=== PATIENT | male | born 1980 | race Caucasian/White ===

== ENCOUNTER 2022-08-16 07:50 | Day surgery (SDC) | payer OTHER ==
--- NOTE | 2022-08-15 13:27 | HP ---
DATE OF SURGERY: 08/16/2022 HISTORY OF PRESENT ILLNESS: The patient is a 42-year-old male presents with complaints of unintentional weight loss over the past two years. He has had EGD and colonoscopy in May. He had some patchy inflammation. He complains of chronic vomiting. He had a HIDA, ultrasound and a CT scan ordered. Ultrasound showed enlarged gallbladder. His HIDA showed a nonfunctioning gallbladder at 0. The patient incidentally was here earlier this year in the emergency room for new onset seizure, seen by a neurologist. He was supplemented with potassium and magnesium. The patient also incidentally sees hematology for hemochromatosis. He would like to proceed with cholecystectomy at this time. PAST MEDICAL HISTORY: Heart murmur. Hypertension. Heartburn. Hemorrhoids. Gastroesophageal reflux disease. Seizures. Anxiety. He has been on some anxiety medicine. Hiatal hernia. Trauma to his face. Hemochromatosis. Hyperlipidemia. PAST SURGICAL HISTORY: T&A. Ventral hernia repair. Left bunionectomy and hammertoe. ALLERGIES: NKDA. MEDICATIONS: Pantoprazole, potassium, magnesium, omeprazole, lisinopril, trazodone, Lipitor, Rashmi. FAMILY HISTORY: None reported. SOCIAL HISTORY: None reported. REVIEW OF SYSTEMS: CONSTITUTIONAL: Denies fever or chills. CHEST: Denies shortness of breath. CVS: Denies chest pain. ABDOMEN: Denies abdominal pain. PHYSICAL EXAMINATION: GENERAL: No acute distress. CHEST: Nonlabored. No shortness of breath. CVS: Regular rate and rhythm. ABDOMEN: Soft. IMPRESSION: Biliary dyskinesia, polyp. PLAN: Laparoscopic cholecystectomy with Dr. Alex Matute. As dictated by Keara Holcomb NP.
[~2022-08-16 07:50] MED LIST: Lactated Ringers 1,000 ML IV ONE; Sensorcaine 0.25% 10 ML ONE
[2022-08-16] MEDS ORDERED: Versed 2 MG/2 ML Injection IV PRN (08:24)
[2022-08-16] MEDS ORDERED: Transderm Scop 1.5MG Patch TOP PRN (08:25)
[2022-08-16] MEDS ORDERED: Reglan 10 MG/2 ML IV ONE (08:25)
[2022-08-16] MEDS ORDERED: Lactated Ringers 1,000 ML IV SCH (08:30)
[2022-08-16] MEDS ORDERED: Pepcid 20 MG VIAL IV SCH (08:30)
[2022-08-16] MEDS ORDERED: Lactated Ringers 1,000 ML IV ONE (08:35)
[2022-08-16] MEDS ORDERED: Transderm Scop 1.5MG Patch ONE (09:38)
[2022-08-16] MEDS ORDERED: Versed 2 MG/2 ML Injection ONE (09:38)
[2022-08-16] MEDS ORDERED: Pepcid 20 MG VIAL IV ONE ×2 (09:38→09:41)
[2022-08-16] MEDS ORDERED: MEFOXIN 2 GM PREMIX** 2 GM/50 ML ML IV ONE (09:38)
[2022-08-16] MEDS ORDERED: Reglan 10 MG/2 ML ONE (09:39)
[2022-08-16] MEDS ORDERED: MEFOXIN 2 GM PREMIX** 2 GM/50 ML ML IV SCH (10:00)
[2022-08-16] MEDS ORDERED: DIPRIVAN 200 MG/20 ML IV ONE (10:48)
[2022-08-16] MEDS ORDERED: BRIDION 200MG/2ML IV ONE (10:49)
[2022-08-16] MEDS ORDERED: Quelicin Fliptop 200 MG/10 ML ONE (10:49)
[2022-08-16] MEDS ORDERED: Xylocaine-Mpf 2% 5 Ml Vial ONE (10:49)
[2022-08-16] MEDS ORDERED: Zemuron 100 MG/10 ML ONE (10:49)
[2022-08-16] MEDS ORDERED: Decadron 4 MG INJ ONE (10:49)
[2022-08-16] MEDS ORDERED: Zofran 4 MG/2 ML VIAL ONE (10:49)
[2022-08-16] MEDS ORDERED: SUBLIMAZE 100 MCG/2 ML ONE (10:52)
[2022-08-16] MEDS ORDERED: DEXMEDETOMIDINE 80 MCG/20ML-NS IV ONE (10:55)
[2022-08-16] MEDS ORDERED: Magnesium Sulfate 1 GM/2 ML VIAL ONE (11:05)
[2022-08-16] MEDS ORDERED: Pre-Attached Lta Kit TP ONE (11:06)
[2022-08-16] MEDS ORDERED: OFIRMEV 100 ML IV ONE (11:06)
[2022-08-16] MEDS ORDERED: PHENYLEPHRINE HCL ONE (11:21)
[2022-08-16] MEDS ORDERED: Ephedrine Sulfate 50 MG/ML ONE (11:25)
[2022-08-16] MEDS ORDERED: TORAdol 30 mg Injection ONE (11:53)
[2022-08-16] MEDS ORDERED: NORCO 5/325 MG PO PRN (12:56)
[2022-08-16 13:25] VITALS: BP 130/83; PULSE 97; O2SAT 99
--- NOTE | 2022-08-16 14:27 | OP ---
SURGERY DATE/TIME: 08/16/2022 1108 PREOPERATIVE DIAGNOSIS: Gallbladder dyskinesia. POSTOPERATIVE DIAGNOSIS: Gallbladder dyskinesia. PROCEDURE: Laparoscopic cholecystectomy. SURGEON: Dr. Alex Matute. ANESTHESIA: General endotracheal tube. ESTIMATED BLOOD LOSS: None. DRAINS: None. COMPLICATIONS: None. CONDITION: Stable. INDICATIONS: A patient with gallbladder dyskinesia. DESCRIPTION OF PROCEDURE AND FINDINGS: Taken to surgery. General anesthetic, routine prep and drape. Time out performed. Veress needle inserted. Opening pressure of 1, insufflating pressure 14. Four - 5's. Good visualization. Cystic duct defined. Cystic artery defined. Both structures triply clipped and transected. Clips noted across and well approximated. Gallbladder rolled out of gallbladder fossa. The gallbladder delivered through epigastric port with almost no hole widening. The field was dry. CO2 exsufflated. Skin closed with 4-0 Vicryl and Steri-Strips. The patient tolerated the procedure satisfactorily.
== END 2022-08-16 13:32 | disposition home or self-care (01) ==
LOC: SDC 07:50
PROVIDERS: ATTEND Surgery
DX: K82.8 Other specified diseases of gallbladder (principal)
CPT/HCPCS: J0330; J0694; J1100; J1885; J2250; J2370; J2405; J2704; J3010; J3475; A9270-GY